=== PATIENT | female | born 1965 | race Hispanic/Latino ===

== ENCOUNTER → 2017-09-26 | Outpatient (CLI) | payer OTHER | END | disposition home or self-care (01) | LOC: OIH 13:40 | PROVIDERS: ATTEND Internal Medicine | DX: Z01.818 Encounter for other preprocedural examination (principal); I70.0 Atherosclerosis of aorta | CPT/HCPCS: 71046 ==

== ENCOUNTER → 2017-12-15 | Outpatient (CLI) | payer OTHER | END | disposition home or self-care (01) | LOC: OIH 15:04 | PROVIDERS: ATTEND Internal Medicine | DX: I70.0 Atherosclerosis of aorta (principal) | CPT/HCPCS: 71046 ==

== ENCOUNTER 2018-12-06 05:48 | Day surgery (SDC) | payer OTHER, MEDICARE ==
[~2018-12-06 05:48] MED LIST: SODIUM CHLORIDE 0.9% 1000ML 1,000 ML IV ONE
[2018-12-06 06:18] VITALS: BP 149/87
[2018-12-06] MEDS ORDERED: ATOR20TA65 PO (06:46)
[2018-12-06] MEDS ORDERED: LISI10TA7 PO (06:46)
[2018-12-06] MEDS ORDERED: AMLO5TAB9 PO (06:46)
[2018-12-06] MEDS ORDERED: DULO60CA64 PO (06:46)
[2018-12-06] MEDS ORDERED: TRAM50TA4 PO (06:46)
[2018-12-06] MEDS ORDERED: PROPOFOL 10 MG/ML 20ML VIAL IV ONE (07:34)
[2018-12-06 08:09] VITALS: BP 134/79
[2018-12-06 08:14] VITALS: BP 144/84
[2018-12-06 08:19] VITALS: BP 158/90
[2018-12-06 08:24] VITALS: BP 152/90
[2018-12-06 08:29] VITALS: BP 128/88
== END 2018-12-06 08:35 | disposition home or self-care (01) ==
LOC: ENDO 05:48 → DAH 05:48 → ENDO 08:35
PROVIDERS: ATTEND Internal Medicine Gastroenterology
DX: D12.4 Benign neoplasm of descending colon (principal); K29.50 Unspecified chronic gastritis without bleeding; R13.10 Dysphagia, unspecified; G47.30 Sleep apnea, unspecified; E66.9 Obesity, unspecified; I10 Essential (primary) hypertension; F41.9 Anxiety disorder, unspecified; D64.9 Anemia, unspecified; E78.5 Hyperlipidemia, unspecified; E03.9 Hypothyroidism, unspecified; F32.9 Major depressive disorder, single episode, unspecified; Z86.73 Personal history of transient ischemic attack (TIA), and cerebral infarction without residual deficits; Z79.899 Other long term (current) drug therapy; Z98.890 Other specified postprocedural states
CPT/HCPCS: 36415; 43239; 45380; 84703; 88305; A4606; J2704; J7030

== ENCOUNTER → 2020-11-12 | Outpatient (CLI) | payer OTHER, MEDICARE ==
[~2020-11-12] MED LIST changes: +AMLO-257 PO; +ATOR20TA65 PO; +DULO60CA64 PO; +LISI10TA24 PO; -SODIUM CHLORIDE 0.9% 1000ML 1,000 ML IV ONE; +TRAM50TA4 PO
== END | disposition home or self-care (01) ==
LOC: RAH 15:22
PROVIDERS: ATTEND Internal Medicine
DX: E04.2 Nontoxic multinodular goiter (principal); R91.1 Solitary pulmonary nodule
CPT/HCPCS: 76536

== ENCOUNTER → 2022-04-27 | Outpatient (CLI) | payer OTHER ==
[~2022-04-27] VITALS: Ht 2.5 cm; Wt 101.6 kg
== END | disposition home or self-care (01) ==
LOC: DTH 11:08
PROVIDERS: ATTEND Surgery
DX: Z71.3 Dietary counseling and surveillance (principal); E66.01 Morbid (severe) obesity due to excess calories; I10 Essential (primary) hypertension; E78.00 Pure hypercholesterolemia, unspecified; G47.33 Obstructive sleep apnea (adult) (pediatric); M19.91 Primary osteoarthritis, unspecified site; K76.0 Fatty (change of) liver, not elsewhere classified; K21.9 Gastro-esophageal reflux disease without esophagitis; Z68.41 Body mass index [BMI] 40.0-44.9, adult
CPT/HCPCS: 97802

== ENCOUNTER → 2022-08-25 | Outpatient (CLI) | payer OTHER | END | disposition home or self-care (01) | LOC: DTH 09:51 | PROVIDERS: ATTEND Surgery | DX: Z71.3 Dietary counseling and surveillance (principal); E66.01 Morbid (severe) obesity due to excess calories; G47.33 Obstructive sleep apnea (adult) (pediatric); I10 Essential (primary) hypertension; M19.91 Primary osteoarthritis, unspecified site; E78.00 Pure hypercholesterolemia, unspecified; K76.0 Fatty (change of) liver, not elsewhere classified; K21.9 Gastro-esophageal reflux disease without esophagitis; Z68.41 Body mass index [BMI] 40.0-44.9, adult | CPT/HCPCS: 97803 ==

== ENCOUNTER → 2022-09-02 | Outpatient (CLI) | payer OTHER | END | disposition home or self-care (01) | LOC: RAH 11:04 | PROVIDERS: ATTEND Internal Medicine | DX: E04.1 Nontoxic single thyroid nodule (principal) | CPT/HCPCS: 76536 ==

== ENCOUNTER → 2023-01-19 | Outpatient (CLI) | payer OTHER ==
[~2023-01-19] MED LIST changes: +ATOM80CA PO; +BUSP30TA2 PO; +DULO30CA52 PO; -DULO60CA64 PO; +GLYC2TAB21 PO; +LEVO25TA54 PO; -LISI10TA24 PO; +LISI20TA24 PO; +MULT-1367 PO
== END | disposition home or self-care (01) ==
LOC: SHCH 14:25
PROVIDERS: ATTEND Internal Medicine Cardiovascular Disease
DX: I08.2 Rheumatic disorders of both aortic and tricuspid valves (principal); I11.9 Hypertensive heart disease without heart failure; I47.10 Supraventricular tachycardia, unspecified; I67.9 Cerebrovascular disease, unspecified; E78.5 Hyperlipidemia, unspecified; E66.9 Obesity, unspecified
CPT/HCPCS: 93306

== ENCOUNTER → 2023-02-28 | Outpatient (CLI) | payer OTHER ==
[2023-02-28 16:31] LABS: BASOPHILS # (AUTO) 0.04 K/uL (0.00-0.20); BASOPHILS % (AUTO) 0.8 % (0.0-5.0); EOSINOPHILS # (AUTO) 0.15 K/uL (0.00-0.70); HEMATOCRIT 37.7 % (36-48); IMMATURE GRANULOCYTE ABSOLUTE 0.01 K/uL (0-1); LYMPHOCYTES # (AUTO) 1.7 K/uL (1.0-4.8); LYMPHOCYTES % (AUTO) 35.2 % (21.0-51.0); MEAN CORPUSCULAR HEMOGLOBIN 30.7 pg (27.0-33.0); MEAN CORPUSCULAR HGB CONC 33.4 g/dL (32.0-36.0); MONOCYTES # (AUTO) 0.3 K/uL (0.1-1.0); MONOCYTES % (AUTO) 6.3 % (3.0-13.0); NEUTROPHILS # (AUTO) 2.7 K/uL (1.8-7.7); NEUTROPHILS % (AUTO) 54.5 % (40.0-77.0); PLATELET COUNT (AUTO) 175 K/uL (130-400); RED CELL DISTRIBUTION WIDTH 13.6 % (11.0-15.5)
[2023-02-28 16:54] LABS: MAGNESIUM 1.9 mg/dL (1.80-2.40); PHOSPHORUS 3.7 mg/dL (2.5-4.9); THYROID STIMULATING HORMONE 4.34 uIU/mL (0.36-3.74)
== END | disposition home or self-care (01) ==
LOC: LAB 14:57
PROVIDERS: ATTEND Internal Medicine Cardiovascular Disease
DX: I10 Essential (primary) hypertension (principal); T50.995A Adverse effect of other drugs, medicaments and biological substances, initial encounter; R53.83 Other fatigue; I69.354 Hemiplegia and hemiparesis following cerebral infarction affecting left non-dominant side; R00.0 Tachycardia, unspecified; R00.2 Palpitations; R01.1 Cardiac murmur, unspecified; E78.5 Hyperlipidemia, unspecified; E66.8 Other obesity; Z68.29 Body mass index [BMI] 29.0-29.9, adult; Z79.899 Other long term (current) drug therapy; X58.XXXA Exposure to other specified factors, initial encounter; Y93.89 Activity, other specified; Y92.89 Other specified places as the place of occurrence of the external cause; Y99.8 Other external cause status
CPT/HCPCS: 36415; 83735; 84100; 84443; 85025; 86003

== ENCOUNTER → 2023-10-19 | Outpatient (CLI) | payer OTHER | END | disposition home or self-care (01) | LOC: RAH 14:44 | PROVIDERS: ATTEND Internal Medicine | DX: E04.1 Nontoxic single thyroid nodule (principal) | CPT/HCPCS: 76536 ==

== ENCOUNTER → 2024-11-14 | Outpatient (CLI) | payer OTHER ==
--- NOTE | 2024-11-14 13:15 | NUR ---
MBSS COMPLETED (OUTPATIENT). silent aspiration after the swallow with thin liquids via tsp; on second aspiration with residue post swallow of thin liquids via tsp there was an immediate cough response; deep non-transient penetrations during the swallow with pudding thick textures with no response. RECOMMEND: Continue with PEG tube feedings for nutrition/hydration and medication. Pt may have pleasure feedings of pureed solids and mildly thick liquids in moderation and as tolerated. 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 Post PEG tube placement, pt reports having dilation procedures completed in [place] with improved swallowing. Pt with slurred speech at time of visit and at baseline from CVA/TIA. DIAGNOSTIC FINDINGS: Pt presented with moderate to severe pharyngeal dysphagia characterized by decreased oral motor strength, ROM, and coordination; decreased hyo-laryngeal elevation/excursion; delayed pharyngeal response trigger; decreased tongue base retraction; and decreased pressure generation within the pharynx. These characteristics were evidenced by decreased labial closure with occasional anterior spillage; accumulation of saliva in oral cavity with occasional drooling; decreased bolus manipulation; delayed swallows; premature spillage to valleculae with spillover to pyriform sinuses; residue on body and base of tongue and posterior pharyngeal wall and pooled residue in valleculae and pyriform sinuses unable to completely clear with extra dry swallows. [employer]CTS [employer] reviewed results and recommendations with patient and friend present at time of visit (with patient's authorization). [employer] educated patient on risks and consequences of aspiration. Speech therapy warranted at this time to address new symptoms of dysphagia post aneurysm and angioplasty a few months ago. [employer] provided patient with a can of thickener and reviewed how to reach desired thickness level. All questions answered. Addendum: 11/14/[address] KENDRICK PURVIS Amended: Links added.
--- NOTE | 2024-11-15 11:38 | HMCIMG ---
MODIFIED BARIUM SWALLOW W CINE REASON: Dysphagia, oropharyngeal phase; Feeding difficulties, unspecified FINDINGS: Fluoroscopic assistance was provided to the speech pathologist while performing examination. For findings and dietary recommendations, refer to speech pathologist's report. FLUORO TIME: 5.8 minutes IMPRESSION: Modified barium swallow as described.
== END | disposition home or self-care (01) ==
LOC: RAH 12:20
PROVIDERS: ATTEND Internal Medicine
DX: R13.12 Dysphagia, oropharyngeal phase (principal); R63.30 Feeding difficulties, unspecified
CPT/HCPCS: 74230; 92611